=== PATIENT | female | born 1965 | race Two or more races ===

== ENCOUNTER 2025-02-19 12:50 | Emergency (ER) | payer OTHER ==
[~2025-02-19] VITALS: Ht 162.6 cm; Wt 95.3 kg
[2025-02-19 13:39] VITALS: BP 126/80; O2SAT 97
[2025-02-19] MEDS ORDERED: DISKETS40 MG (13:40)
[2025-02-19] MEDS ORDERED: DICLOFENAC-MIS1 EAC3 PO (13:40)
[2025-02-19] MEDS ORDERED: TRAMADOL HCL E100 M1 (13:40)
[2025-02-19] MEDS ORDERED: EZALLOR SPRINKL20 MG PO (13:41)
[2025-02-19] MEDS ORDERED: VERIPRED 220 MG/5 ML PO (13:41)
[2025-02-19] MEDS ORDERED: LYRICA100 MG PO (13:41)
[2025-02-19] MEDS ORDERED: KETOROLAC TROMETHAMINE 60 MG VIAL IM ONE ×2 (17:15→17:31)
[2025-02-19 18:08] LABS: BASO % 0.2 % (0.1-1.2); EOS # 0.00 (0.04-0.54); EOS % 0.0 % (0.7-7.0); LYMPH # 0.98 (1.18-3.74); LYMPH % 15.0 % (19.3-53.1); MEAN PLATELET VOLUME 9.10 fl (9.4-12.4); MONO # 0.18 (0.24-0.82); MONO % 2.8 % (4.7-12.5); NEUT # 5.33 (1.56-6.13); NEUT % 81.5 % (34.0-71.1); RED CELL DISTRIBUTION WIDTH 13.6 % (11.6-14.4)
[2025-02-19 18:35] LABS: INR 1.0
[2025-02-19 18:39] LABS: D DIMER 0.42 MG/L
[2025-02-19] MEDS ORDERED: MEDROLPACK PO (19:05)
[2025-02-19] MEDS ORDERED: PEPCID AC20 MG PO (19:05)
== END 2025-02-19 19:19 | disposition home or self-care (01) ==
LOC: ER 12:50
PROVIDERS: General Practice
DX: M25.59 Pain in other specified joint (principal); M79.7 Fibromyalgia; Z85.3 Personal history of malignant neoplasm of breast
CPT/HCPCS: 36415; 96372; 99282; J1885

== ENCOUNTER 2025-02-20 13:04 | Outpatient (CLI) | payer OTHER ==
[~2025-02-20 13:04] MED LIST: DICLOFENAC-MIS1 EAC3 PO; DISKETS40 MG; EZALLOR SPRINKL20 MG PO; LYRICA100 MG PO; MEDROLPACK PO; PEPCID AC20 MG PO; TRAMADOL HCL E100 M1; VERIPRED 220 MG/5 ML PO
== END 2025-02-20 13:05 | disposition home or self-care (01) ==
LOC: NUCLEAR 13:04
PROVIDERS: ATTEND Emergency Medicine
DX: M25.50 Pain in unspecified joint (principal); I87.2 Venous insufficiency (chronic) (peripheral)